=== PATIENT | female | born 2000 | race Two or more races ===

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

== ENCOUNTER 2019-11-24 06:55 | Day surgery (SDC) | payer OTHER ==
[~2019-11-24] VITALS: Ht 154.9 cm; Wt 63.5 kg
[~2019-11-24 06:55] MED LIST changes: +FLAGYL500 MG PO; +PROTONIX40 MG PO; +TETRACYCLINE H250 MG PO
--- NOTE | 2019-11-24 08:58 | NUR ---
11/24/19 0858 Prachi Bailey 0819-PATIENT ARRIVED TO PACU ON 6L MASK RR EVEN. NONAROUSABLE. SR. HOB ELEVATED. NO DRAINAGE NOTED.
[2019-11-24] MEDS ORDERED: HYDROCODONE-ACE15 M3 PO (09:39)
--- NOTE | 2019-11-24 10:24 | OR ---
[facility] [address] [place], [place] [address] Signed DATE OF OPERATION: 11/24/2019 SURGEON: Wai Wakefield MD PREOPERATIVE DIAGNOSIS: Chronic tonsillitis. POSTOPERATIVE DIAGNOSIS: Chronic tonsillitis. PROCEDURE: Tonsillectomy. ANESTHESIA: General orotracheal. SKIN CARE SPECIALIST: Vikram. PREOPERATIVE HISTORY: Lily is a 19-year-old young lady with chronic tonsillitis, multiple infections, tonsil lithiasis, taken to the operating room for the above-mentioned procedures. OPERATIVE PROCEDURE AND FINDINGS: After informed consent, the patient was taken to the operating room, placed in supine position where general orotracheal anesthesia was induced. The patient and procedure were verified. The patient was repositioned. McIvor mouth gag placed into suspension. Headlight exam of the pharynx showed hypertrophic tonsils. Left tonsil was grasped with a tenaculum, retracted medially and removed from its fossa with mucosal sparing incision with Coblation. The field was dry after the procedure, same procedure on the right tonsil. Tonsils were sent to pathology. Mouth gag was released for several minutes. Reinspection showed no bleeding points. The pharynx was suctioned clear of blood secretions. Mouth gag was removed. The patient was awakened, extubated, transported to the recovery room in good condition. No complications. BLOOD LOSS: Minimal. SPECIMEN: To pathology. Electronically Signed By: WAI WAKEFIELD MD 11/24/19 1024 PATIENT NAME: LILY KELLER OPERATIVE REPORT DATE OF : [birth year] REPORT #: [id number] PHYSICIAN: WAI WAKEFIELD MD PCP: MIHAI MARTINEZ REPORT IS CONFIDENTIAL AND NOT TO BE RELEASED WITHOUT AUTHORIZATION [address] [place], [place] [address] Signed DRAINS: No drains. Wai Wakefield MD /MODL /[id number] Copies: ~ Electronically Signed By: WAI WAKEFIELD MD 11/24/19 1024 PATIENT NAME: LILY KELLER OPERATIVE REPORT DATE OF : [birth year] REPORT #: [id number] PHYSICIAN: WAI WAKEFIELD MD PCP: MIHAI MARTINEZ REPORT IS CONFIDENTIAL AND NOT TO BE RELEASED WITHOUT AUTHORIZATION
--- NOTE | 2019-11-24 10:56 | NUR ---
WHEN PATIENT WAS GETTING UP TO LEAVE SHE BECAME NAUSEATED MED WITH 4 MG ZOFRAN PER ELECTRIC OPERATOR
--- NOTE | 2019-11-25 12:44 | PATH ---
[facility] [address] [place], [place] [address] Signed SPECIMEN(S): A LEFT TONSIL SPECIMEN(S): B RIGHT TONSIL SPECIMEN SOURCE: A. LEFT TONSIL B. RIGHT TONSIL CLINICAL HISTORY: Hypertrophy of tonsils. FINAL PATHOLOGIC DIAGNOSIS: A. Tonsil, left, tonsillectomy: - Reactive follicular lymphoid hyperplasia. B. Tonsil, right, tonsillectomy: - Reactive follicular lymphoid hyperplasia. NAL:cml:C2NR MICROSCOPIC EXAMINATION: Histologic sections of all submitted blocks are examined by light microscopy. These findings, together with the gross examination, support the pathologic diagnosis. GROSS DESCRIPTION: Two specimens are received in two containers, labeled "SO." A. The specimen, labeled " SO, A," and designated on the requisition "left tonsil," is received in formalin and consists of an irregularly-shaped, pink-lópez, rubbery, 2.8 x 2.1 x 1.6 cm tonsil that is inked blue. Specimen is cross-sectioned to reveal lópez-pink tissue with usual crypts. Many of the crypts contain lópez-white pasty material. A customer account representative section is submitted in one cassette (A1). B. The specimen, labeled " SO, B," and designated on the requisition "right tonsil," is received in formalin and consists of an irregularly-shaped, lópez-pink, rubbery, 2.8 x 2.7 x 2.0 cm tonsil. The specimen is cross-sectioned to reveal lópez-pink to dark red tissue with usual crypts. A customer account representative section is submitted with part A in one cassette (A1). AI (under the direct supervision of a pathologist) The Gross Description was prepared using a voice recognition system. The report was reviewed for accuracy; however, sound-alike word errors, addition and/or deletions may occur. If there is any PATIENT NAME: FARHEEN KELLER PATHOLOGY DATE OF : [birth year] REPORT #: [id number] PHYSICIAN: SHENG PATHOLOGY PCP: MIHAI MARTINEZ REPORT IS CONFIDENTIAL AND NOT TO BE RELEASED WITHOUT AUTHORIZATION [facility] [address] [place], [place] [address] Signed question about this report, please contact Client Services. PERFORMING LABORATORY: The technical component was performed by Diana [address] [address] (Ocular Care Technologist: Grace Rubin MD; CLIA# [id number]). Professional interpretation was performed by Diana [facility], [address] [address] (CLIA# [id number]). Diagnostician: Devorah Mar MD Pathologist Electronically Signed 11/25/2019 Copies: ~ PATIENT NAME: FARHEEN KELLER PATHOLOGY DATE OF : [birth year] REPORT #: [id number] PHYSICIAN: SHENG PATHOLOGY PCP: MIHAI MARTINEZ REPORT IS CONFIDENTIAL AND NOT TO BE RELEASED WITHOUT AUTHORIZATION
== END 2019-11-24 10:45 | disposition home or self-care (01) ==
LOC: DS 06:55 → OPS 06:55
PROVIDERS: Otolaryngology
PROC: 0C5PXZZ Destruction of Tonsils, External Approach (ICD-10-PCS; principal; 2019-11-24 08:15)
DX: J35.01 Chronic tonsillitis (principal); G47.33 Obstructive sleep apnea (adult) (pediatric)
CPT/HCPCS: 00170; J0330; J1100; J2001; J2405; J2704; J3010; J7030; J7121

== ENCOUNTER 2021-04-03 23:05 | Emergency (ER) | payer OTHER ==
[~2021-04-03] VITALS: Ht 154.9 cm; Wt 58.9 kg
[~2021-04-03 23:05] MED LIST changes: +HYDROCODONE-ACE15 M3 PO
[2021-04-03] MEDS ORDERED: HYDROXYZINE PAM25 MG PO (23:34)
== END 2021-04-04 01:43 | disposition home or self-care (01) ==
LOC: ED 23:05
DX: N83.201 Unspecified ovarian cyst, right side (principal)
CPT/HCPCS: 76830; 76856; 80053; 81001; 83690; 84703; 85025; 96374; 99284-25; J2405